=== PATIENT | female | born 1950 | race Caucasian/White ===

== ENCOUNTER 2017-08-27 06:57 | Day surgery (SDC) | payer MEDICARE, BC ==
[~2017-08-27 06:57] MED LIST: Lactated Ringers 1,000 ML IV SCH; Lidocaine 1%/Sod Bicarbonate in NS 8.4% 1 ML Syringe IV PRN; Sodium Chloride 0.9% 10 ML Syringe FLUSH PRN
[2017-08-27] MEDS ORDERED: Lidocaine 1% 0 ML ONE (07:18)
[2017-08-27] MEDS ORDERED: Propofol 200 MG/20 ML SDV ONE (07:18)
--- NOTE | 2017-08-27 07:20 | PCM.PREANE ---
Preanesthetic Assessment - Anesthesia/Transfusion/Family Hx Anesthesia History: Prior Anesthesia Without Reaction Family History of Anesthesia Reaction: No Transfusion History: No Prior Transfusion(s) Intubation History: Unknown - Review of Systems General: No Symptoms Pulmonary: No Symptoms Cardiovascular: No Symptoms (HTN, History of vasomotor instability) Gastrointestinal: Abdominal Pain (History of epigastric pain), Difficulty Swallowing Neurological: No Symptoms Other: Reports: None (History of ETOH abuse), Diabetes (AM blood [id number]= 109 ), Depression, Anxiety - Physical Assessment NPO Status Date: 08/26/17 NPO Status Time: 19:00 Pulse: 87 O2 Sat by Pulse Oximetry: 97 Respiratory Rate: 16 Blood Pressure: 144/81 Temperature: 36.6 C Height: 1.52 m Weight: 76.374 kg ASA Class: 2 Mental Status: Alert & Oriented x3 Airway Class: Mallampati = 2 Dentition: Reports: Normal Dentition, Parker(s), Caries Thyro-Mental Finger Breadths: 3 Mouth Opening Finger Breadths: 3 ROM/Head Extension: Full Lungs: Clear to Auscultation, Normal Respiratory Effort Cardiovascular: Regular Rate, Regular Rhythm, No Murmurs - Allergies Allergies/Adverse Reactions: Allergies Allergy/AdvReac Type Severity Reaction Status Date / Time No Known Allergies Allergy Verified 08/26/17 15:22 - Anesthesia Plan Pre-Op Medication Ordered: None - Acknowledgements Anesthesia Type Planned: MAC Pt an Appropriate Candidate for the Planned Anesthesia: Yes Alternatives and Risks of Anesthesia Discussed w Pt/Guardian: Yes Pt/Guardian Understands and Agrees with Anesthesia Plan: Yes PreAnesthesia Questionnaire HEENT History: Reports: Impaired Vision Cardiovascular History: Reports: High Cholesterol, Hypertension Respiratory History: Reports: None Gastrointestinal History: Reports: Other (See Below) Other Gastrointestinal History: epigastric pain Genitourinary History: Reports: Other (See Below) Other Genitourinary History: dysuria, cervix stenosis, UTI [employer] History: Reports: Other OB/BYN History: post [place] bleeding, atrophic vaginitis, endometrial thickening, Musculoskeletal History: Reports: Osteoporosis Neurological History: Reports: Other (See Below) Other Neuro History: vasomotor instability Psychiatric History: Reports: Anxiety, Depression, Other (See Below) Other Psychiatric History: fatigue, insomnia Endocrine/Metabolic History: Reports: Diabetes, Type II, Vitamin D Deficiency Hematologic History: Reports: None Immunologic History: Reports: None Oncologic (Cancer) History: Reports: None Dermatologic History: Reports: None - Past Surgical History Head Surgeries/Procedures: Reports: None HEENT Surgical History: Reports: None Cardiovascular Surgical History: Reports: None Respiratory Surgical History: Reports: None GI Surgical History: Reports: Cholecystectomy Female Surgical History: Reports: Section, D&C, Hysterectomy Male Surgical History: Reports: None Endocrine Surgical History: Reports: None Neurological Surgical History: Reports: Other (See Below) Other Neurological Surgeries/Procedures: low back surgery Musculoskeletal Surgical History: Reports: None Oncologic Surgical History: Reports: None Dermatological Surgical History: Reports: None - SUBSTANCE USE Smoking Status *Q: Never Smoker Recreational Drug Use History: No - HOME MEDS Home Medications: Home Meds Lisinopril 10 mg PO DAILY 11/09/15 [History] metFORMIN [Glucophage XR] 500 mg PO BID 11/09/15 [History] ALPRAZolam [Alprazolam] 1 mg PO BID 08/26/17 [History] Aspirin 81 mg PO DAILY 08/26/17 [History] Calcium Phosphate Trib/Vit D3 [Citracal + D3 Gummies] 2 tab PO DAILY 08/26/17 [ History] Cholecalciferol (Vitamin D3) [Vitamin D3] 1,000 unit PO DAILY 08/26/17 [History] Estradiol [Vagifem] 10 mcg VAG Q48H 08/26/17 [History] FA/Lycopene/Lut/MV,Ca,Iron,Min [Centrum] 1 tab PO DAILY 08/26/17 [History] Fish Oil/DHA/EPA [Fish Oil 1,200 MG] 1,200 mg PO DAILY 08/26/17 [History] Lutein/Minerals/Vit A,C & E [Ocuvite] 1 tab PO DAILY 08/26/17 [History] Simvastatin [Zocor] 20 mg PO DAILY 08/26/17 [History] - CURRENT (IN HOUSE) MEDS Current Meds: Current Medications Lactated Ringer's (Ringers, Lactated) 1,000 mls @ 125 mls/hr IV ASDIRECTED GABBIE Lidocaine/Sodium Bicarbonate (Buffered Lidocaine 1% In Ns 8.4%) 0.25 ml IV ONETIME PRN PRN Reason: Prior to IV Start Sodium Chloride (Saline Flush) 10 ml FLUSH ASDIRECTED PRN PRN Reason: Keep Vein Open Discontinued Medications Lidocaine HCl (Xylocaine-Mpf 1%) Confirm Administered Dose 4 mls @ as directed .ROUTE .STK-MED ONE Stop: 08/27/17 07:19 Propofol (Diprivan 20 Ml) Confirm Administered Dose 200 mg .ROUTE .STK-MED ONE Stop: 08/27/17 07:19
--- NOTE | 2017-08-27 08:27 | PCM.OPNOTE ---
- General Post-Op/Procedure Note Date of Surgery/Procedure: 08/27/17 Operative Procedure(s): Esophagogastroduodenoscopy with antral, GE junction, and proximal esophageal biopsies Findings: Mild inflammation of the antrum with no strictures or chronic inflammatory changes seen in the esophagus. There was no hiatal hernia. Pre Op Diagnosis: Difficulty swallowing Post-Op Diagnosis: Mild antritis Anesthesia Technique: MAC, Moderate Sedation Primary Surgeon: Calderon Walker Pathology: GE junction, antral and proximal esophageal biopsies using cold forceps EBL in mLs: 0 Complications: None Condition: Good Free Text/Narrative:: After adequate IV sedation and analgesia was obtained with monitoring through a bite block a lubricated upper endoscope was easily inserted into the esophagus. The scope was advanced under direct vision with air insufflation as necessary into the stomach. There was some saliva in the stomach. Air was given here. The pylorus was identified followed by entry into the distal second part of the duodenum. The second and first part of the duodenum were endoscopically normal with no mass lesions or inflammatory changes seen. There was mild inflammation in the antrum with no erosions or ulcerations. Biopsies were taken for histologic review using cold forceps. In the retroflexed view there was no hiatal hernia seen. The fundus and cardiac regions were endoscopically normal. The rugal folds were grossly normal as well. The scope was then withdrawn to the GE junction which were sharp. There were no strictures or rings seen in this area. 2 biopsies were taken of the GE junction for histologic review. The body of the esophagus was unremarkable. I took a couple of random biopsies within the proximal third of the esophagus for evaluation. The vocal cords were briefly visualized on removal of the scope and were grossly normal. Photographs were taken for the patient for the record.
--- NOTE | 2017-08-27 08:27 | PCM48HPAN ---
Post Anesthesia Note - EVALUATION WITHIN 48HRS OF ANESTHETIC Vital Signs in Normal Range: Yes Patient Participated in Evaluation: Yes Respiratory Function Stable: Yes Airway Patent: Yes Cardiovascular Function Stable: Yes Hydration Status Stable: Yes Pain Control Satisfactory: Yes Nausea and Vomiting Control Satisfactory: Yes Mental Status Recovered: Yes - COMMENTS/OBSERVATIONS Free Text/Narrative:: awake, no c/o. resting quietly
[2017-08-27 08:28] VITALS: BP 114/91
== END 2017-08-27 08:51 | disposition home or self-care (01) ==
LOC: JD.SDS 06:57
PROVIDERS: ATTEND Surgery
DX: K29.50 Unspecified chronic gastritis without bleeding (principal); K20.9 Esophagitis, unspecified; B33.20 Viral carditis, unspecified; I10 Essential (primary) hypertension; E11.9 Type 2 diabetes mellitus without complications; F32.9 Major depressive disorder, single episode, unspecified; F41.1 Generalized anxiety disorder; E78.5 Hyperlipidemia, unspecified; E55.9 Vitamin D deficiency, unspecified; Z79.84 Long term (current) use of oral hypoglycemic drugs; Z79.899 Other long term (current) drug therapy; Z90.49 Acquired absence of other specified parts of digestive tract; Z90.710 Acquired absence of both cervix and uterus
CPT/HCPCS: 43239; 82962; J7120; 00740; 88305; J2704